=== PATIENT | female | born 1965 | race Caucasian/White ===

== ENCOUNTER → 2017-01-18 | Outpatient (CLI) | payer OTHER ==
[2017-01-18 12:11] LABS: BILIRUBIN, DIRECT 0.1 mg/dL (0.0-0.2); BILIRUBIN, TOTAL 0.8 mg/dl (0.2-1.0); HEMOGLOBIN A1c 5.5 % (4.8-5.6); TOTAL PROTEIN 7.7 gm/dL (6.4-8.2)
== END | disposition home or self-care (01) ==
LOC: LAB 11:22
PROVIDERS: Internal Medicine
DX: E78.4 Other hyperlipidemia (principal); R73.02 Impaired glucose tolerance (oral); E55.9 Vitamin D deficiency, unspecified

== ENCOUNTER → 2017-12-15 | Day surgery (SDC) | payer OTHER ==
[~2017-12-15] VITALS: Ht 170.1 cm; Wt 52.2 kg
[~2017-12-15] MED LIST: ALENDRONATE SOD70 M1 PO; VITAMIN D5000 UNIT PO
--- NOTE | ~2017-12-15 | O ---
[place], [place] OPERATIVE NOTE NAME: KEYON HUA UNIT #: [id number] ROOM: DOCTOR: COURTNEY NEWTON MD BIRTHDATE: [birth year] DOS: 12/15/2017 HISTORY OF PRESENT ILLNESS: This is a 52-year-old patient, who was presented for colonic screening. ALLERGIES: No known medication. FAMILY HISTORY: Noncontributory. PAST SURGICAL HISTORY: Hysterectomy. PAST MEDICAL HISTORY: Osteoporosis and she is on Fosamax. SOCIAL HISTORY: Nonsmoker, nonalcohol consumer. PROCEDURE: Today's procedure part of investigation is colonoscopy. PREMEDICATION: Versed and propofol. SCOPE: Olympus forward-viewing colonoscope 10L video. REPORT: After putting the patient in the left lateral position and application of lubricant to rectal pouch and digital examination, scope was introduced. Thereafter, under direct visualization, I attempted to be sent to the cecum. However, multiple technical issues on the way. First of all, colonic prep was not optimal and suboptimal, I had to lavage #2. At the first turn of the sigmoid colon, she becomes severely angulated and majority of the sigmoid colon and good segment of the descending colon is displaced in sigmoid anatomy with extreme tortuosity. Scope was advanced and multiple technique was used to negotiate without leading to perforation. However, it appears that further pressure is going to lead to rupture of sigmoid colon. After multiple attempts, the decision was to withdraw the scope and diverticulosis was photographed, documented. Air was suctioned out. The patient was extubated, tolerated the procedure well. IMPRESSION: Redundant and tortuosity of sigmoid colon, diverticulosis. PLAN AND DISCUSSION: Since the patient is prepped, we are going to use a completion barium enema x-ray study today to prevent further reapproach, which is going to be redundant. Follow-up colonoscopy in 10 years unless patient has symptoms for which follow-up should be sooner. [place], [place] OPERATIVE NOTE NAME: KEYON HUA UNIT #: [id number] ROOM: DOCTOR: COURTNEY NEWTON MD BIRTHDATE: [birth year] COURTNEY NEWTON MD CM:OPRECORD:OPERATIVE NOTE [id number] COURTNEY NEWTON MD 01/08/18 1741 interface
[2017-12-15 12:00] VITALS: BP 123/82
[2017-12-15 13:20] VITALS: BP 112/58
[2017-12-15 13:35] VITALS: BP 109/67
[2017-12-15 13:47] VITALS: BP 117/77
== END | disposition home or self-care (01) ==
LOC: SDC 12-11 08:00
DX: Z12.11 Encounter for screening for malignant neoplasm of colon (principal); K63.89 Other specified diseases of intestine; K57.30 Diverticulosis of large intestine without perforation or abscess without bleeding; Z98.890 Other specified postprocedural states; M81.0 Age-related osteoporosis without current pathological fracture; M54.5 Low back pain; G89.29 Other chronic pain; Z87.891 Personal history of nicotine dependence; Z90.710 Acquired absence of both cervix and uterus

== ENCOUNTER 2021-06-02 14:42 | Observation (INO) | payer OTHER ==
[~2021-06-02] VITALS: Ht 170.1 cm; Wt 52.6 kg
[2021-06-02 14:51] VITALS: BP 144/87
[2021-06-02 18:21] LABS: BILIRUBIN Negative (Negative); BLOOD Negative (Negative); CLARITY Clear (Clear); COLOR Yellow (Yellow); GLUCOSE Negative (Negative); KETONE Negative (Negative); LEUKO ESTERASE 3+ (Negative); NITRITE Negative (Negative); PH 7.5 (4.5-8.0); UROBILINOGEN 0.2 E.U./dl (0.0-1.0)
[2021-06-02 18:45] LABS: WBC 41-50 wbc/hpf (0-5)
[2021-06-02 18:46] LABS: BACTERIA TRACE
[2021-06-02 18:55] LABS: BASO # 0.1 10*3/uL (0.0-0.1); BASO % 0.6 % (0.0-1.0); EOS % 0.4 % (1.0-4.0); HEMATOCRIT 44.4 % (37.0-47.0); LYMPH # 1.2 10*3/uL (1.3-4.4); LYMPH % 14.6 % (27.0-41.0); MEAN CELL VOLUME 95.7 fl (81.0-99.0); MEAN CORPUSCULAR HGB 30.8 pg (27.0-31.0); MEAN CORPUSCULAR HGB CONC 32.2 g/dl (33.0-37.0); MEAN PLATELET VOLUME 9.4 fl (9.6-12.3); MONO # 0.7 10*3/uL (0.1-1.0); MONO % 9.3 % (3.0-9.0); NEUT # 5.9 10*3/uL (2.3-7.9); NEUT % 74.7 % (47.0-73.0); PLATELET COUNT AUTOMATED 321 10*3/uL (130-400); RED BLOOD COUNT 4.64 10*6/uL (4.10-5.10); RED CELL DISTRI WIDTH 12.9 % (0-14.5); WHITE BLOOD COUNT 7.9 10*3/uL (4.8-10.8)
[2021-06-02 19:14] LABS: ALBUMIN 4.3 gm/dl (3.1-4.5); ALKALINE PHOSPHATASE 64 U/L (45-117); BUN 8 mg/dl (7-24); CHLORIDE 103 mmol/L (98-107); CREATININE 0.72 mg/dL (0.55-1.02); LIPASE 296 U/L (73-393); POTASSIUM 3.8 mmol/L (3.5-5.1); SGOT/AST 22 IU/L (3-35); SGPT/ALT 40 U/L (12-78); SODIUM 137 mmol/L (136-145); TOTAL PROTEIN 9.1 gm/dL (6.4-8.2)
[2021-06-02 22:35] VITALS: BP 133/81
[2021-06-03] VITALS (9 sets, daily range): BP systolic 120–148; BP diastolic 65–98
[2021-06-03 05:38] LABS: BUN 9 mg/dl (7-24); CHLORIDE 108 mmol/L (98-107); CREATININE 0.75 mg/dL (0.55-1.02); POTASSIUM 3.8 mmol/L (3.5-5.1); SODIUM 141 mmol/L (136-145)
[2021-06-03 06:45] LABS: BASO % 0.7 % (0.0-1.0); EOS # 0.1 10*3/uL (0.0-0.4); EOS % 1.6 % (1.0-4.0); HEMATOCRIT 38.4 % (37.0-47.0); LYMPH # 1.9 10*3/uL (1.3-4.4); LYMPH % 33.3 % (27.0-41.0); MEAN CELL VOLUME 97.5 fl (81.0-99.0); MEAN CORPUSCULAR HGB 31.5 pg (27.0-31.0); MEAN CORPUSCULAR HGB CONC 32.3 g/dl (33.0-37.0); MONO % 18.2 % (3.0-9.0); NEUT # 2.6 10*3/uL (2.3-7.9); NEUT % 46.2 % (47.0-73.0); PLATELET COUNT AUTOMATED 276 10*3/uL (130-400); RED BLOOD COUNT 3.94 10*6/uL (4.10-5.10); RED CELL DISTRI WIDTH 13.2 % (0-14.5); WHITE BLOOD COUNT 5.7 10*3/uL (4.8-10.8)
[2021-06-03] MEDS ORDERED: CIPRO500 MG PO (08:36)
== END 2021-06-04 01:21 | disposition home or self-care (01) ==
LOC: ED 14:42 → EDHOLD 21:13
PROVIDERS: Physician Assistant; ADMIT Internal Medicine; ATTEND Internal Medicine
DX: K35.80 Unspecified acute appendicitis (principal); N30.01 Acute cystitis with hematuria; Z79.899 Other long term (current) drug therapy

== ENCOUNTER → 2022-10-21 | Outpatient (CLI) | payer OTHER ==
[~2022-10-21] MED LIST changes: +CIPRO500 MG PO
== END | disposition home or self-care (01) ==
LOC: US 13:57
PROVIDERS: ATTEND Occupational Therapist
DX: R59.0 Localized enlarged lymph nodes (principal)

== ENCOUNTER → 2022-10-25 | Outpatient (CLI) | payer OTHER ==
[2022-10-26 05:06] LABS: IMMUNOGLOBULIN G, QNT 1736 mg/dL (586-1602); IMMUNOGLOBULIN M, QNT 135 mg/dL (26-217)
== END | disposition home or self-care (01) ==
LOC: LAB 09:31
PROVIDERS: ATTEND Occupational Therapist
DX: R76.8 Other specified abnormal immunological findings in serum (principal)

== ENCOUNTER → 2025-03-14 | Outpatient (CLI) | payer OTHER | END | disposition home or self-care (01) | LOC: RAD 12:15 | DX: M25.552 Pain in left hip (principal); M51.369 Other intervertebral disc degeneration, lumbar region without mention of lumbar back pain or lower extremity pain ==